=== PATIENT | female | born 1955 | race African-American/Black ===

== ENCOUNTER 2019-02-05 11:00 | Emergency (ER) | payer BC ==
[~2019-02-05] VITALS: Ht 167.6 cm; Wt 111.6 kg
[2019-02-05 11:32] VITALS: BP 160/88
== END 2019-02-05 11:49 | disposition home or self-care (01) ==
LOC: FSED 11:00
DX: I10 Essential (primary) hypertension (principal)
CPT/HCPCS: 99282